=== PATIENT | female | born 1970 | race Two or more races ===

== ENCOUNTER 2023-01-21 10:11 | Outpatient (CLI) | payer OTHER | END 2023-01-21 10:24 | disposition home or self-care (01) | LOC: TOM 10:11 | PROVIDERS: ATTEND Orthopaedic Surgery | DX: M79.671 Pain in right foot (principal) ==

== ENCOUNTER 2023-01-21 11:34 | Outpatient (CLI) | payer OTHER | END 2023-01-21 11:43 | disposition home or self-care (01) | LOC: NUCLEAR 11:34 | PROVIDERS: ATTEND Orthopaedic Surgery | DX: M81.0 Age-related osteoporosis without current pathological fracture (principal); M79.671 Pain in right foot ==

== ENCOUNTER → 2023-03-08 07:26 | Outpatient (CLI) | payer OTHER | END | disposition home or self-care (01) | LOC: LAB 07:26 | PROVIDERS: ATTEND Orthopaedic Surgery | DX: E55.9 Vitamin D deficiency, unspecified (principal); M85.9 Disorder of bone density and structure, unspecified; E56.1 Deficiency of vitamin K ==

== ENCOUNTER → 2023-11-02 12:52 | Outpatient (CLI) | payer OTHER | END | disposition home or self-care (01) | LOC: LAB 12:52 | PROVIDERS: ATTEND Orthopaedic Surgery | DX: E55.9 Vitamin D deficiency, unspecified (principal); M85.9 Disorder of bone density and structure, unspecified ==